=== PATIENT | male | born 1960 | race Caucasian/White ===

== ENCOUNTER → 2022-09-04 14:27 | Outpatient (BNVA) | payer OTHER, SELFPAY | PROVIDERS: Visit Provider Physician Assistant | DX: S39.012A Strain of muscle, fascia and tendon of lower back, initial encounter (principal); X50.1XXA Overexertion from prolonged static or awkward postures, initial encounter; M54.30 Sciatica, unspecified side | CPT/HCPCS: 99203 ==

== ENCOUNTER → 2022-09-08 10:42 | Outpatient (BNVA) | payer OTHER, SELFPAY | PROVIDERS: Visit Provider Physician Assistant Medical | DX: M54.40 Lumbago with sciatica, unspecified side (principal) | CPT/HCPCS: 99213 ==

== ENCOUNTER → 2022-09-17 11:07 | Outpatient (BNVA) | payer OTHER, SELFPAY | PROVIDERS: Visit Provider Physician Assistant | DX: S39.012D Strain of muscle, fascia and tendon of lower back, subsequent encounter (principal); X50.1XXD Overexertion from prolonged static or awkward postures, subsequent encounter; M54.30 Sciatica, unspecified side | CPT/HCPCS: 99214 ==

== ENCOUNTER → 2022-09-25 10:12 | Outpatient (BNVA) | payer OTHER, SELFPAY | PROVIDERS: Visit Provider Physician Assistant | DX: M54.41 Lumbago with sciatica, right side (principal) | CPT/HCPCS: 99213 ==

== ENCOUNTER → 2022-10-07 14:40 | Outpatient (BNVA) | payer OTHER, SELFPAY | PROVIDERS: Visit Provider Physician Assistant | DX: M54.40 Lumbago with sciatica, unspecified side (principal) | CPT/HCPCS: 99213 ==